=== PATIENT | female | born 1970 | race Caucasian/White ===

== ENCOUNTER 2017-08-26 10:31 | Day surgery (SDC) | payer OTHER ==
[~2017-08-26] VITALS: Ht 132.1 cm; Wt 66.2 kg
[~2017-08-26 10:31] MED LIST: ASCORBIC ACID500 M3 PO; ATORVASTATIN CA20 MG PO; CYANOCOBALAM1000 MCG PO; FLAX SEED OIL1 EACH PO; FLEXERIL10 MG PO; VALSARTAN-HCTZ1 EACH PO; VITAMIN D31000 UNI2 PO; ZOFRAN ODT4 MG PO
== END 2017-08-26 13:00 | disposition home or self-care (01) ==
LOC: CATH 10:31
DX: I87.8 Other specified disorders of veins (principal); C50.919 Malignant neoplasm of unspecified site of unspecified female breast
CPT/HCPCS: C1752; C1894; J0690; J1644; J2250; J3010; S0020

== ENCOUNTER → 2017-08-28 | Outpatient (CLI) | payer OTHER | END | disposition home or self-care (01) | LOC: NUC 08-26 14:00 | DX: C50.919 Malignant neoplasm of unspecified site of unspecified female breast (principal) | CPT/HCPCS: 78472; A9512; A9560; J1644 ==

== ENCOUNTER 2017-10-12 08:50 | Emergency (ER) | payer OTHER ==
[~2017-10-12] VITALS: Ht 165.1 cm; Wt 67.0 kg
[2017-10-12] MEDS ORDERED: KEFLEX500 MG PO (10:40)
[2017-10-12 11:06] VITALS: BP 149/93
== END 2017-10-12 11:09 | disposition home or self-care (01) ==
LOC: EME 08:50
DX: J02.9 Acute pharyngitis, unspecified (principal); H92.03 Otalgia, bilateral; J06.9 Acute upper respiratory infection, unspecified; Z85.3 Personal history of malignant neoplasm of breast; Z92.21 Personal history of antineoplastic chemotherapy
CPT/HCPCS: 87651 90; 99281; 99283

== ENCOUNTER → 2017-11-28 | Outpatient (CLI) | payer OTHER ==
[~2017-11-28] MED LIST changes: +KEFLEX500 MG PO
== END | disposition home or self-care (01) ==
LOC: NUC 11-12 13:00
DX: Z79.899 Other long term (current) drug therapy (principal); C50.919 Malignant neoplasm of unspecified site of unspecified female breast
CPT/HCPCS: 78472; A9512; A9560; J1644